=== PATIENT | male | born 1975 | race African-American/Black ===

== ENCOUNTER 2017-07-16 07:10 | Emergency (ER) | payer OTHER ==
[~2017-07-16] VITALS: Ht 180.3 cm; Wt 76.0 kg
[2017-07-16 08:01] VITALS: BP 129/74
== END 2017-07-16 08:39 | disposition home or self-care (01) ==
LOC: ER 07:23
DX: S50.811A Abrasion of right forearm, initial encounter (principal); Y08.89XA Assault by other specified means, initial encounter; Y93.89 Activity, other specified; Y92.018 Other place in single-family (private) house as the place of occurrence of the external cause
CPT/HCPCS: 99282